=== PATIENT | male | born 1975 | race Caucasian/White ===

== ENCOUNTER 2021-01-24 18:09 | Emergency (ER) | payer OTHER, SELFPAY ==
[2021-01-24 18:10] VITALS: BP 141/90; PULSE 71; RESP 14; TEMP 37.1; O2SAT 96; BMI 22.4
--- NOTE | 2021-01-24 19:49 | EX.ED.GENINJ ---
HPI History of Present Illness Chief Complaint: Laceration Informant: patient Narrative Narrative: Patient had a branch swinging and hit him on the left forehead. No visual complaints. No blood thinners. No loss of consciousness. No nausea vomiting. He is acting normally per his . He does have a laceration. Bleeding is controlled. Nothing really makes his better or worse. No other symptoms. PFSH PFSH Medical History no medical history Home Medications NK 01/24/21 [History Last Taken Unknown] Allergy/AdvReac Type Severity Reaction Status Date / Time No Known Allergies Allergy Verified 01/24/21 18:17 Surgical History no surgical history Social History Smoking Status: Never smoker ROS ROS ED Constitutional Constitutional ED: Denies fever(s) or subjective Eyes Eyes: Reports other Details: Contusion and abrasion lateral to left eye but no visual complaint. ; Denies blurry vision or change in vision Cardiovascular Cardiovascular: Denies chest pain Gastrointestinal Gastrointestinal: Denies nausea or vomiting Musculoskeletal Musculoskeletal: Denies neck pain Integumentary Reports other Details: Laceration as in history of present illness. Neurologic Neurologic: Denies headache(s) Allergic/Immunologic Allergic/Immunologic ED: Denies mouth swelling or urticaria EXAM Physical Exam Const Vital Signs: 01/24/21 18:10 Temperature 98.8 F Temperature Source Temporal Pulse Rate 71 Respiratory Rate 14 Blood Pressure 141/90 H Blood Pressure Mean 107 Pulse Ox 96 Oxygen Delivery Method Room Air Positive well nourished and well developed General Appearance ED: well developed and NAD Eyes PERRL and EOMs intact bilaterally General Eye ED: Yes other Other Details: Contusion abrasion lateral to left eye but no sign of eye involvement. No subconjunctival hemorrhage. Resp normal respiratory effort Extremity normal to inspection Neuro oriented x3 Neuro Narrative: And patient acting normally per . Sensorium / Orientation: alert Psych mental status grossly normal and thought process normal Skin Skin Narrative: Patient has a 3 cm laceration at the left upper forehead with some contused and abraded tissue next to it. No active bleeding. MDM MDM MDM Narrative Medical decision making narrative: Procedure: Suture laceration: The area around the wound was sterilely prepped and draped. It was anesthetized with 2 cc of 1% lidocaine with epinephrine with good anesthesia. It was scrubbed. It was irrigated it was scrubbed and irrigated again. The area did look clean. Edges were approximated with good cosmesis and hemostasis. The incision was Y-shaped contused and irregular. A total of 7 sutures were placed. He tolerated this well. Postop care and timing for removal and signs of infection were discussed. Discharge Plan Triage Chief Complaint: Laceration ED Provider: Gaudencio Batista Dx/Rx/DC Orders Clinical Impression: Forehead laceration Instructions: ED Laceration: All Closures Prescriptions: No Action NK RF: 0 Primary Care Provider: Simone Mckenzie Referrals: Simone Mckenzie DO [Primary Care Provider] - 5 Days for suture removal Disposition Disposition: Home, Self Care
[2021-01-24] MEDS: Lidocaine 1% /Epi 1:100 (20ml) 20 ML Vial INFILT (19:55)
[2021-01-24] MEDS: Diphth,Pertuss(Acell),Tet Vac 0.5 ML Vial IM (20:50)
[2021-01-24 21:13] VITALS: BP 130/84; PULSE 72
== END 2021-01-24 21:26 | disposition home or self-care (01) ==
PROVIDERS: Emergency Provider Emergency Medicine; PCP Family Medicine
DX: S01.81XA Laceration without foreign body of other part of head, initial encounter (principal); W22.8XXA Striking against or struck by other objects, initial encounter; Y93.9 Activity, unspecified; Y92.9 Unspecified place or not applicable
CPT/HCPCS: 12013; 90471; 90715; 99283